=== PATIENT | female | born 1985 | race Caucasian/White ===

== ENCOUNTER 2021-07-22 14:40 | Inpatient (IN) | payer MEDICAID ==
[~2021-07-22] VITALS: Ht 162.6 cm; Wt 79.4 kg
[2021-07-22 14:40] VITALS: BP_SYST 133
[2021-07-22 15:24] LABS: BASOPHILS # (AUTO) 0.1 K/uL (0.0-0.2); BASOPHILS % (AUTO) 0.8 % (0.0-2.0); EOSINOPHILS # (AUTO) 0.1 K/uL (0.0-0.4); EOSINOPHILS % (AUTO) 0.5 % (0.0-4.0); HEMATOCRIT 44.6 % (36-48); HEMOGLOBIN 15.4 g/dL (12.0-16.0); LYMPHOCYTES # (AUTO) 1.6 K/uL (1.0-5.5); LYMPHOCYTES % (AUTO) 11.2 % (20.5-51.5); MEAN CORPUSCULAR HEMOGLOBIN 32 pg (27-31); MEAN CORPUSCULAR HGB CONC 35 % (32-36); MEAN CORPUSCULAR VOLUME 92 fL (79.0-98.0); MONOCYTES # (AUTO) 0.5 K/uL (0.0-1.0); MONOCYTES % (AUTO) 3.9 % (1.7-9.3); NEUTROPHILS # (AUTO) 11.7 K/uL (1.8-7.7); NEUTROPHILS % (AUTO) 83.6 % (40.0-70.0); PLATELET COUNT (AUTO) 334 K/uL (130-430); RED BLOOD CELL COUNT(AUTO) 4.83 MIL/uL (4.2-6.2)
[2021-07-22] MEDS ORDERED: IOHEXOL 350 mgI/mL, 150 ML INFUS..BTL IV ONE (15:36)
[2021-07-22 16:42] LABS: ANION GAP 9 (5-15); CHLORIDE 103 mmol/L (98-107); GLUCOSE 104 mg/dL (70-99); SODIUM SERUM 138 mmol/L (136-145)
[2021-07-22 16:43] LABS: CALCIUM 8.9 mg/dL (8.4-11.0)
[2021-07-22 16:44] LABS: CREATININE 0.72 mg/dL (0.55-1.30); GFR AFRICAN AMERICAN 117 mL/min (>90); TOTAL BILIRUBIN 0.3 mg/dL (0.0-1.0); UREA NITROGEN, BLOOD 11 mg/dL (8-21)
[2021-07-22 16:46] LABS: ALANINE AMINOTRANSFERASE 36 U/L (12-78); ALBUMIN 3.9 g/dL (3.4-4.8); ALCOHOL, BLOOD < 3 mg/dL (<10); AMYLASE 37 U/L (0-100); ASPARTATE AMINOTRANSFERASE 11 U/L (10-37); LIPASE 80 U/L (73-393)
[2021-07-22 17:43] LABS: ACETONE, SERUM NEGATIVE (NEGATIVE)
[2021-07-22] MEDS: D5/0.45 NS 1,000 ML IV SCH (19:30)
[2021-07-22 20:38] VITALS: BP_SYST 124
[2021-07-22 21:30] VITALS: BP_SYST 124
[2021-07-23 04:17] VITALS: BP_SYST 124
[2021-07-23 08:00] VITALS: BP_SYST 122
[2021-07-23 11:28] VITALS: BP_SYST 116
[2021-07-23] MEDS: D5/0.45 NS 1,000 ML IV SCH (13:26)
[2021-07-23 15:29] VITALS: BP_SYST 116
[2021-07-23 20:24] VITALS: BP_SYST 126
[2021-07-24 00:11] VITALS: BP_SYST 122
[2021-07-24 08:00] VITALS: BP_SYST 141
[2021-07-24 08:22] LABS: HCG,QUAL RESULT NEGATIVE (NEGATIVE)
[2021-07-24] MEDS: D5/0.45 NS 1,000 ML IV SCH (09:42)
[2021-07-24 12:00] VITALS: BP_SYST 119
[2021-07-24 16:00] VITALS: BP_SYST 141
[2021-07-24 17:22] LABS: HEMOGLOBIN 14.5 g/dL (12.0-16.0); MEAN CORPUSCULAR VOLUME 93 fL (79.0-98.0); RED CELL DISTRIBUTION WIDTH 12.9 % (9.0-15.0)
[2021-07-24 17:28] LABS: BASOPHILS # (AUTO) 0.1 K/uL (0.0-0.2); BASOPHILS % (AUTO) 0.6 % (0.0-2.0); EOSINOPHILS # (AUTO) 0.2 K/uL (0.0-0.4); EOSINOPHILS % (AUTO) 1.7 % (0.0-4.0); LYMPHOCYTES # (AUTO) 2.3 K/uL (1.0-5.5); LYMPHOCYTES % (AUTO) 17.3 % (20.5-51.5); MEAN CORPUSCULAR HEMOGLOBIN 32 pg (27-31); MEAN CORPUSCULAR HGB CONC 35 % (32-36); MONOCYTES # (AUTO) 0.7 K/uL (0.0-1.0); MONOCYTES % (AUTO) 5.1 % (1.7-9.3); NEUTROPHILS % (AUTO) 75.3 % (40.0-70.0); PLATELET COUNT (AUTO) 349 K/uL (130-430); RED BLOOD CELL COUNT(AUTO) 4.53 MIL/uL (4.2-6.2); WHITE BLOOD COUNT (AUTO) 13.3 K/uL (4.8-10.8)
[2021-07-24 21:15] VITALS: BP_SYST 138
[2021-07-25 00:30] VITALS: BP_SYST 124
[2021-07-25] MEDS: D5/0.45 NS 1,000 ML IV SCH (05:38)
[2021-07-25 08:00] VITALS: BP_SYST 132
[2021-07-25] MEDS ORDERED: LORazepam 2 MG/ML VIAL IVP PRN (08:15)
[2021-07-25] MEDS ORDERED: chlordiazePOXIDE HCL 25 MG CAPSULE PO SCH (09:00)
[2021-07-25 11:28] VITALS: BP_SYST 123
[2021-07-26 08:06] LABS: FOLATE (FOLIC ACID) 8.5 ng/mL (>3.0)
== END 2021-07-25 15:05 | disposition left against medical advice (07) | DRG 48 ==
LOC: SED 14:40 → SMU 17:58
PROVIDERS: ADMIT Internal Medicine; ATTEND Internal Medicine
DX: G57.01 Lesion of sciatic nerve, right lower limb (principal); R65.10 Systemic inflammatory response syndrome (SIRS) of non-infectious origin without acute organ dysfunction; F10.20 Alcohol dependence, uncomplicated; S74.01XA Injury of sciatic nerve at hip and thigh level, right leg, initial encounter; Z20.822 Contact with and (suspected) exposure to COVID-19; G62.1 Alcoholic polyneuropathy; G89.29 Other chronic pain; M54.50 Low back pain, unspecified; X58.XXXA Exposure to other specified factors, initial encounter; Y93.89 Activity, other specified; Y92.89 Other specified places as the place of occurrence of the external cause; Y99.8 Other external cause status
CPT/HCPCS: 36415; 70450-TC; 70496; 70498; 72148; 76376; 80053; 82009; 82150; 82607; 82746; 83605; 83690; 84484; 84703; 85025; 93005; 97163-GP; 99285; G0482; Q9967

== ENCOUNTER 2023-10-14 23:01 | Emergency (ER) | payer MEDICAID ==
[~2023-10-14] VITALS: Ht 162.6 cm; Wt 90.7 kg
[2023-10-14 23:23] VITALS: BP_SYST 148; PULSE 104; RESP 19; TEMP 97.9; O2SAT 97
[2023-10-14] MEDS ORDERED: IBUP-1971 PO (23:42)
[2023-10-15 00:37] VITALS: BP_SYST 148; PULSE 104; RESP 19; TEMP 97.9; O2SAT 97
== END 2023-10-15 00:36 | disposition home or self-care (01) ==
LOC: SED 23:01
DX: S92.331A Displaced fracture of third metatarsal bone, right foot, initial encounter for closed fracture (principal); F17.200 Nicotine dependence, unspecified, uncomplicated; Z79.899 Other long term (current) drug therapy; X58.XXXA Exposure to other specified factors, initial encounter; Y93.89 Activity, other specified; Y92.89 Other specified places as the place of occurrence of the external cause; Y99.8 Other external cause status
CPT/HCPCS: 99283